=== PATIENT | male | born 1960 | race Caucasian/White ===

== ENCOUNTER 2017-11-16 08:40 | Emergency (ER) | payer OTHER ==
[2017-11-16 08:44] VITALS: BP 124/73
[2017-11-16] MEDS ORDERED: TDAP ADULT 0.5 ML INJ (BOOSTRIX) IM ONE ×2 (08:52→10:29)
--- NOTE | 2017-11-16 09:06 | EDPHY ---
H & P Time Seen by Provider: 11/16/17 08:57 HPI/ROS: CHIEF COMPLAINT: Multiple right finger lacerations HISTORY OF PRESENT ILLNESS: 57-year-old [id number] male with out-of- date tetanus was walking with a glass bottle in his hand this morning, sustained a mechanical fall the onto the bottle sustaining lacerations 2nd 3rd 4th digit distal phalanx. Complaining of decreased sensation to all affected digits distal to the laceration. PHYSICAL EXAM (Prior to examination, patient consented to physical exam, hands were washed and my usual and customary physical exam procedures followed) 1) GENERAL: Well-developed, well-nourished, alert and oriented. Appears to be in no acute distress. 2) HEAD: Normocephalic 3) HEENT: sclera anicteric 4) LUNGS: Breathing comfortably. 5) SKIN: 2nd digit at the D IP joint palmar aspect 1.5 cm laceration, 3rd digit at the PIP joint palmar aspect 2.5 cm laceration, 4th digit palmar aspect PIP joint 2.5 cm laceration 6) MUSCULOSKELETAL: 2nd 3rd 4th digit FDS dysfunction noted 7) NEUROLOGIC: Decreased sensation decreased 2 point discrimination to the 2nd , 3rd, 4th digit distal to laceration Smoking Status: Never smoked Constitutional: Initial Vital Signs Temperature (C) 36.3 C 11/16/17 08:42 Heart Rate 72 11/16/17 08:42 Respiratory Rate 18 11/16/17 08:42 Blood Pressure 124/73 H 11/16/17 08:42 O2 Sat (%) 97 11/16/17 08:42 O2 Delivery Mode Room Air Allergies/Adverse Reactions: azithromycin [From Zithromax Z-Shun] Allergy (Verified 11/16/17 08:57) Home Medications: Medication Instructions Recorded Cephalexin [Keflex] 500 mg PO TID 7 Days cap 11/16/17 MDM/Departure - MDM Imaging Results: Imaging Impressions Hand X-Ray 11/16/17 09:04 Impression: Small bone chip versus radiopaque glass fragment fourth finger. Results discussed with Baltazar Olivera at 9:29 pm. Hand X-Ray 11/16/17 10:01 Impression: Persistent small osseous fragment is presumably a minimal avulsion. Images reviewed myself Procedures: Procedure: Laceration repair. I explained the indications, risks and benefits for both laceration repair and anesthetic administration. Verbal consent was obtained from the patient. The laceration on the right 2nd 3rd 4th digit distal phalanx was anesthetized using 0.5% bupivicaine without epinephrine digital nerve block. After anesthetic administered the patient was observed for a period of time and had no apparent adverse effects. The wound was cleaned, prepped, draped in normal sterile fashion and explored to its base. No foreign body seen, no foreign bodies palpated. There were no deep structures involved. FDS dysfunction is noted at all affected digits . 2nd digit closed with 2 simple interrupted 5 O Prolene sutures, 3rd digit closed with 4 simple interrupted 5 O Prolene sutures, 4th digit closed with 3 simple interrupted 5 O Prolene sutures. The wound repair was complex. The procedure was performed by myself. Patient has been informed that scarring will occur, although efforts have been made to minimize this. Medications Given: Discontinued Medications Cephalexin HCl (Keflex) 500 mg PO EDNOW ONE PRN Reason: Protocol Stop: 11/16/17 09:11 Last Admin: 11/16/17 09:17 Dose: 500 mg Ibuprofen (Motrin) 600 mg PO EDNOW ONE Stop: 11/16/17 09:20 Last Admin: 11/16/17 09:23 Dose: 600 mg ED Course/Re-evaluation: Patient has been re-evaluated with serial examinations. Wounds have been closed. On examination is incompletely clear whether he is unwilling or unable to perform flexion at the D IP, whether he may have FDS dysfunction or not. He is also noted to have a possible radiolucent foreign body verses small osseous fragment. I stressed the importance of follow-up with Hand Surgeon and I have consulted with the [facility] Ledesma with Dr. Dino Shell at 1050 a.m. Starting the patient on on antibiotic prophylaxis. Tetanus has been updated. Patient feels comfortable being discharged - Depart Disposition: Home, Routine, Self-Care Clinical Impression: Finger laceration Qualifiers: Encounter type: initial encounter Finger: index finger Damage to nail status: with damage Foreign body presence: with foreign body Laterality: right Qualified Code(s): S61.320A - Laceration with foreign body of right index finger with damage to nail, initial encounter Condition: Good Instructions: Laceration (ED) Additional Instructions: Return to the ER if you develop redness, swelling, discharge, warmth to the wound, red streaks going up your arm, or any other symptoms that concern you. Prescriptions: Cephalexin [Keflex] 500 mg PO TID 7 Days cap Referrals: Dino Shell MD [Medical Doctor] - 11/19/17
[2017-11-16] MEDS ORDERED: CEPHALEXIN 500 MG CAP PO ONE (09:10)
[2017-11-16] MEDS ORDERED: IBUPROFEN 600 MG TAB PO ONE (09:19)
== END 2017-11-16 11:29 | disposition home or self-care (01) ==
PROC: 0HQFXZZ Repair Right Hand Skin, External Approach (ICD-10-PCS; principal; 2017-11-16)
DX: S61.320A Laceration with foreign body of right index finger with damage to nail, initial encounter (principal); S61.322A Laceration with foreign body of right middle finger with damage to nail, initial encounter; S61.324A Laceration with foreign body of right ring finger with damage to nail, initial encounter; W18.02XA Striking against glass with subsequent fall, initial encounter; Y99.8 Other external cause status; Y93.01 Activity, walking, marching and hiking